=== PATIENT | female | born 1965 | race Caucasian/White ===

== ENCOUNTER → 2020-03-25 | Outpatient (CLI) | payer OTHER ==
--- NOTE | 2020-03-25 16:05 | Diagnostic Imaging Report ---
CLINICAL INDICATION: Patient with left lower quadrant pain since Thursday with low grade fever. Patient with history of stones. EXAM: X-ray of the abdomen supine view. COMPARISON: None. FINDINGS: There is a 4 mm calcification overlying the left pelvis region. Unknown if this represents a phlebolith or stone in the distal left ureter. There is a small area of ill-defined calcification seen to the right of midline over the pelvis region. Unknown if this represents calcifications, stones or stool. There is no calcification overlying the regions of the kidneys. Nonobstructive bowel gas pattern is seen. Bones show no significant abnormality. IMPRESSION: 1: There is a 4 mm calcification seen overlying the left side of the pelvis which may represent a phlebolith or stone. CT of the abdomen and pelvis without contrast would better evaluate, if necessary. 2: Nonspecific calcification seen to right of midline in the pelvis. Dictated by: Dictated on workstation # [id number]
== END ==
LOC: RAD 15:07
DX: N28.89 Other specified disorders of kidney and ureter (principal); R10.32 Left lower quadrant pain; I47.1 Supraventricular tachycardia; G44.89 Other headache syndrome; R53.83 Other fatigue; R10.814 Left lower quadrant abdominal tenderness; R50.81 Fever presenting with conditions classified elsewhere; M54.5 Low back pain; Z20.828 Contact with and (suspected) exposure to other viral communicable diseases
CPT/HCPCS: 74018